=== PATIENT | female | born 1990 | race African-American/Black ===

== ENCOUNTER 2020-07-26 17:51 | Emergency (ER) | payer BC, SELFPAY ==
[2020-07-26 17:55] VITALS: BP 149/108; PULSE 102; RESP 18; TEMP 35.9; O2SAT 100
--- NOTE | 2020-07-26 18:10 | ED.DENTAL ---
HPI - Dental/Oral General Chief complaint: Dental/Oral Stated complaint: TOOTH ACHE Time Seen by Provider: 07/26/20 18:05 Source: patient Mode of arrival: ambulatory Limitations: no limitations History of Present Illness HPI Narrative: Patient is a 29-year-old female who presents complaining of right upper dental pain x1 week. She reports the pain increasing over the past day. She has not seen dentist. She denies taking [id number] medications for pain. MD Complaint: tooth pain Related Data Home Medications Medication Instructions Recorded Confirmed cholecalciferol (vitamin D3) 07/26/20 Allergies Allergy/AdvReac Type Severity Reaction Status Date / Time Penicillins Allergy Hives Verified 07/26/20 18:07 Review of Systems Review of Systems: Narrative: CONSTITUTIONAL: Denies fever, chills, or sweats. EYES: Denies visual changes, redness, or discharge. ENT: Denies rhinorrhea, congestion, sore throat, or otalgia. CARDIOVASCULAR: Denies chest pain, palpitations, or edema. RESPIRATORY: Denies cough or dyspnea. GASTROINTESTINAL: Denies abdominal pain, nausea, vomiting, or diarrhea. GENITOURINARY: Denies dysuria or hematuria. SKIN: Denies rash or itching. MUSCULOSKELETAL: Denies back pain, joint pain, or myalgia. NEUROLOGIC: Denies headache, numbness, dizziness, or weakness. PSYCHIATRIC: Denies anxiety or depression. PMFSH Past Medical History Medical History No significant past medical history Surgical History Surgical History No significant past surgical history Family History Family History Other Hypertension Social History Social History (Updated 07/26/20 @ 18:19 by RAJI Vazquez) Smoking status: Never smoker Alcohol intake: never Substance use: never Occupation/Education: occupation Exam Narrative: Exam Narrative: GENERAL: Well-appearing, well-nourished, and in no acute distress. HEAD: Normocephalic, atraumatic. EYES: No redness or drainage. ENT: Mucous membranes pink and moist. Nares clear. No rhinorrhea. Throat normal. Uvula midline. Multiple dental caries, dental fracture CHEST: No respiratory distress. Clear to auscultation. HEART: Regular rate and rhythm. No murmur appreciated. Normal peripheral pulses. EXTREMITIES: Normal range of motion. SKIN: Warm, dry, no rash. NEURO: No focal deficits. Alert and oriented x3. Gait steady. PSYCH: Normal affect. No signs of depression or anxiety. Course Vital Signs Vital signs: Vital Signs Temperature 35.9 C L 07/26/20 17:55 Pulse Rate 102 H 07/26/20 17:55 Respiratory Rate 18 07/26/20 17:55 Blood Pressure 149/108 H 07/26/20 17:55 Pulse Oximetry 100 07/26/20 17:55 Temperature 35.9 C L 07/26/20 17:55 Pulse Rate 102 H 07/26/20 17:55 Respiratory Rate 18 07/26/20 17:55 Blood Pressure 149/108 H 07/26/20 17:55 Pulse Oximetry 100 07/26/20 17:55 Reviewed. Patient has been instructed to follow-up with her PCP regarding her blood pressure. MDM - Dental/Oral MDM Narrative Medical decision making narrative: Patient has multiple dental caries, small periapical abscess noted, dental fracture noted. Patient to be started on antibiotics at this time and ibuprofen for pain. Patient is aware of the need to follow-up with dentist. Discussed with patient also following up with her PCP because of hypertension. Patient verbalizes agreement and is stable for discharge to home with outpatient follow-up. Differential Diagnosis Differential diagnosis: Likely dental caries, dental abscess and fracture of tooth Critical Care Time Critical Care Time Critical Care Time: No Discharge Plan Discharge Clinical Impression: Dental caries, Dental abscess Fracture of tooth Qualifiers: Encounter type: initial encounter Fracture type: closed Qual
== END 2020-07-26 18:38 | disposition home or self-care (01) ==
PROVIDERS: Emergency Provider Nurse Practitioner
DX: K02.9 Dental caries, unspecified (principal); K04.7 Periapical abscess without sinus; K03.81 Cracked tooth
CPT/HCPCS: 99283